=== PATIENT | male | born 1980 | race Caucasian/White ===

== ENCOUNTER 2022-06-05 09:55 | Emergency (ER) | payer SELFPAY ==
[2022-06-05 10:00] VITALS: BP 167/109; PULSE 90; RESP 14; TEMP 36.4; O2SAT 100; BMI 22.0
--- NOTE | 2022-06-05 10:16 | ECG_ITS ---
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 Measurements Intervals [place] Rate: 90 P: 69 NV: 126 QRS: 57 QRSD: 98 T: 47 QT: 348 QTc: 426 Interpretive Statements SINUS RHYTHM POSSIBLE RIGHT VENTRICULAR CONDUCTION DELAY [RSR (QR) IN V1/V2] MINIMAL VOLTAGE CRITERIA FOR LVH, CONSIDER NORMAL VARIANT [MEETS CRITERIA IN ONE OF: R(aVL), S(V1), R(V5), R(V5/V6)+S(V1)] No previous ECG available for comparison Electronically Signed On 06-08-2022 18:35:27 KINDERGARTEN TEACHER ASSISTANT by Ole Carrillo M.D. [id number]
--- NOTE | 2022-06-05 10:24 | ED_ITS ---
HPI - Chest Pain General: Chief Complaint: Chest Pain Stated Complaint: Dizzy, chest pain Time Seen by Provider: 06/05/22 10:24 History of Present Illness: Mr. Bruce is a 41-year-old gentleman with history of hypertension presenting to the emergency department due to chest discomfort and presyncopal feeling. He reports first noticing symptoms yesterday while at work where he became very lightheaded and had associated chest pressure. This improved with sitting and drinking some water though has subsequently recurred especially with exertion. He endorses seeing spots with the presyncopal feeling. Intensity symptoms at worst is moderate to severe though currently mild to moderate. Denies frequent similar episodes in the past. No other specific changes in health, exacerbating, or alleviating factors identified. Former smoker, does endorse positive family history for premature coronary artery disease. Onset (ago): day(s) Prior episodes: No Onset: during exertion Pain location: substernal Pain radiation: none Severity: moderate Quality: heaviness Relieving factors: rest Exacerbating factors: exertion Associated symptoms: Reports other Review of Systems General: Reports: 10 or more systems reviewed and unremarkable except in HPI and below PFSH ED PFSH: Medical History (Updated 06/13/22 @ 00:00 by ) Hypertension Family History (Updated 06/05/22 @ 10:32 by Hudson Kamara MD) Other Family history of premature coronary artery disease Social History (Updated 06/05/22 @ 10:32 by Hudson Kamara MD) Smoking and tobacco status: former smoker Physical Exam Const: COMMON NORMALS: alert GENERAL APPEARANCE: cooperative and well developed HENMT: COMMON NORMALS: normocephalic and atraumatic HEAD & SCALP: normocephalic and atraumatic Eye: COMMON NORMALS: conjunctivae normal CONJUNCTIVA: Yes conjunctivae normal SCLERA: sclerae normal Neck/C-Spine: COMMON NORMALS: supple GENERAL: Yes trachea midline Resp: COMMON NORMALS: clear to auscultation bilaterally EFFORT & INSPECTION: Yes able to speak in complete sentences AUSCULTATION: clear to auscultation bilaterally Cardio: COMMON NORMALS: regular rate and regular rhythm RATE: regular rate RHYTHM: regular rhythm GI: COMMON NORMALS: Soft to palpation PALPATION: Yes Soft to palpation and No Tenderness to palpation present (GI) Extremity: GENERAL: Yes normal exam except as noted and No edema Neuro: COMMON NORMALS: moves all extremities SENSORIUM/ORIENTATION: Yes alert and No Orientation impaired Psych: COMMON NORMALS: mental status grossly normal and Normal thought process present THOUGHT PROCESS: Normal thought process present Course Vital Signs: Vital signs: Vital Signs Temperature 97.6 F 06/05/22 10:00 Pulse Rate 68 06/05/22 12:30 Respiratory Rate 23 H 06/05/22 12:30 Blood Pressure 155/103 06/05/22 12:30 Pulse Oximetry 100 06/05/22 12:30 Oxygen Delivery Me thod 06/05/22 10:00 MDM - Chest Pain Medical Decision Making 41-year-old gentleman sent chest pain and presyncopal type feeling. Exam as above. No focal deficits. EKG with sinus rhythm, no STEMI. Unremarkable hematologic and metabolic panel. D-dimer negative. Viral studies negative. Chest x-ray with no lobar consolidation or pneumothorax. CT head negative. Treated with aspirin and fluids during ED course. Etiology of patient symptoms is unspecified chest pain presyncope. Patient is low risk by heart score however given family history does likely need further outpatient work-up. The results of ED evaluation were discussed with the patient including prescriptions and/or symptomatic cares (if applicable) including appropriate and responsible use, followup plan, and return precautions. The patient verbalized understanding and felt safe for discharge. Medical Records I reviewed the patient's medical records. Lab Data I reviewed the patient's lab results. 06/05/22 10:40 06/05/22 10:40 Radiology Impressions Chest X-Ray 06/05/22 10:28 IMPRESSION: Unremarkable chest radiograph. Head CT 06/05/22 11:29 IMPRESSION: No acute intracranial abnormality identified. Laboratory Results WBC 5.8 10^3/uL (4.0-10.0) 06/05/22 10:40 RBC 5.36 10^6/uL (4.1-5.3) H 06/05/22 10:40 Hgb 16.2 g/dL (11.7-16.6) 06/05/22 10:40 Hct 47.8 % (42.0-52.0) 06/05/22 10:40 MCV 89.2 fl (80-94) 06/05/22 10:40 MCH 30.2 pg (28.0-34.0) 06/05/22 10:40 MCHC 33.9 g/dL (30.0-36.0) 06/05/22 10:40 RDW 12.6 % (12.1-15.1) 06/05/22 10:40 Plt Count 256 10^3/cmm (130-400) 06/05/22 10:40 MPV 10.2 fL (7.4-10.4) 06/05/22 10:40 Neut % (Auto) 69.0 % 06/05/22 10:40 Lymph % (Auto) 17.2 % 06/05/22 10:40 [place] % (Auto) 8.8 % 06/05/22 10:40 Eos % (Auto) 4.5 % 06/05/22 10:40 Baso % (Auto) 0.3 % 06/05/22 10:40 Neut # (Auto) 4.00 10^3/uL (1.8-7.7) 06/05/22 10:40 Lymph # (Auto) 1.0 10^3/uL (0.8-4.8) 06/05/22 10:40 Aiken # (Auto) 0.5 10^3/uL (0.2-0.9) 06/05/22 10:40 Eos # (Auto) 0.3 10^3/uL (0.0-0.8) 06/05/22 10:40 Baso # (Auto) 0.0 10^3/uL (0.0-0.1) 06/05/22 10:40 Nucleated RBC % (auto) 0 % 06/05/22 10:40 Nucleated RBCs # 0.0 /100WBC 06/05/22 10:40 D-Dimer <= 0.27 ug/mIFEU (0-0.59) 06/05/22 10:40 Sodium 139 mmol/L (136-145) 06/05/22 10:40 Potassium 4.3 mmol/L (3.5-5.1) 06/05/22 10:40 Chloride 104 mmol/L (98-107) 06/05/22 10:40 Carbon Dioxide 24 mmol/L (22-29) 06/05/22 10:40 Anion Gap 15.3 (5-19) 06/05/22 10:40 BUN 13 mg/dL (6-20) 06/05/22 10:40 Creatinine 0.7 mg/dL (0.7-1.2) 06/05/22 10:40 GFR Calculation 124.3 mL/min (90-130) 06/05/22 10:40 Glucose 73 mg/dL (65-115) 06/05/22 10:40 Calculated Osmolality 287 mOsm/kg (285-295) 06/05/22 10:40 Calcium 9.6 mg/dL (8.5-10.5) 06/05/22 10:40 Total Bilirubin 0.4 mg/dL (0.15-1.2) 06/05/22 10:40 AST 15 U/L (0-40) 06/05/22 10:40 ALT 14 U/L (0-41) 06/05/22 10:40 Alkaline Phosphatase 88 U/L (40-130) 06/05/22 10:40 Troponin T Baseline 6 ng/L (0-15) 06/05/22 10:40 NT-Pro-B Natriuret Pep 101 pg/mL (0-125) 06/05/22 10:40 Total Protein 7.0 g/dL (6.6-8.7) 06/05/22 10:40 Albumin 4.6 g/dL (3.5-5.2) 06/05/22 10:40 Globulin 2.4 g/dL (1.3-4.6) 06/05/22 10:40 Lipase 28 U/L (13-60) 06/05/22 10:40 Influenza Type A Ag negative (Negative) 06/05/22 10:45 Influenza Type B Ag negative (Negative) 06/05/22 10:45 SARS-CoV-2 Ag (Rapid) negative (Negative) 06/05/22 10:45 Discharge Plan Discharge Patient Disposition: Home Clinical Impression: Chest pain, Pre-syncope Condition: Stable Prescriptions: New losartan 50 mg tablet 50 mg PO DAILY Qty: 30 0RF hydrochlorothiazide 25 mg tablet 25 mg PO DAILY Qty: 30 0RF No Action Tylenol Ex Str Rapid Release 500 mg Tablet 1,500 mg PO Q6H PRN (Reason: Pain) Discharge Orders: Discharge ED (Routine); Ordered 06/05/22 Ordered By: Hudson Kamara Other Ambulatory Orders: ECG holter monitor 3 Days (Routine) Timeframe: 3 Days Facility: [facility] - Location: Radiology Ordered By: Hudson Kamara Discharge Diet: Usual diet Discharge Activity: Increase activity as tolerated Patient Instructions: Chest Pain (ED), Near Syncope (ED) Activity Restrictions/Additional Instructions: Thank you for visiting the emergency department. You were seen and evaluated for chest pain and lightheadedness. The exact cause of your symptoms is unclear though as discussed does not appear to need inpatient management at this time. I do believe that he requires further outpatient evaluation. I will message case management for further testing. I will also message case management for a primary care provider. Please follow- up with a primary care provider. Return to the emergency department for worsening symptoms or anything else that you are concerned about a feel needs emergency department evaluation. 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
--- NOTE | 2022-06-05 10:28 | XR_ITS ---
WS: [id number] Exam: XR chest 1V portable [id number] Date/Time of Exam: 06/05/2022 10:28 AM Reason For Exam: cp Findings: The lungs are clear and fully expanded. Costophrenic angles are sharp. No infiltrates. Bronchovascula r relief appears normal. Cardiac silhouette is unremarkable. Bony elements are intact. XR/XR chest 1V portable [id number] IMPRESSION: Unremarkable chest radiograph.
[2022-06-05 10:30] VITALS: BP 163/115; PULSE 93; RESP 18; O2SAT 99
[2022-06-05] MEDS: aspirin 81 mg Chew Tablet 324 MG PO (10:31)
--- NOTE | 2022-06-05 10:36 | PC.PHAR ---
pt states takes no rx medications
--- NOTE | 2022-06-05 10:40 | PC.NURSE ---
pt placed on continuos spo2, nibp, and cm.
[2022-06-05 10:41] VITALS: BP 163/115; BP 168/130; BP 169/111; PULSE 109; PULSE 91; PULSE 94
[2022-06-05 10:55] LABS: Basophils % 0.3 %; Eosinophils # 0.3 10^3/uL (0.0-0.8); Eosinophils % 4.5 %; Hematocrit 47.8 % (42.0-52.0); Hemoglobin 16.2 g/dL (11.7-16.6); Lymphocytes % 17.2 %; Mean Corpuscular HGB Conc 33.9 g/dL (30.0-36.0); Mean Corpuscular Hemoglobin 30.2 pg (28.0-34.0); Mean Corpuscular Volume 89.2 fl (80-94); Mean Platelet Volume 10.2 fL (7.4-10.4); Monocytes # 0.5 10^3/uL (0.2-0.9); Monocytes % 8.8 %; Nucleated Red Blood Cells % 0 %; Platelet Count 256 10^3/cmm (130-400); Red Blood Count 5.36 10^6/uL (4.1-5.3); Red Cell Distribution Width 12.6 % (12.1-15.1); White Blood Count 5.8 10^3/uL (4.0-10.0)
[2022-06-05 11:12] LABS: D Dimer <= 0.27 ug/mIFEU (0-0.59)
[2022-06-05 11:13] LABS: Influenza A by IFA negative (Negative); Influenza B by IFA negative (Negative); SARS Covid-2 Antigen negative (Negative)
[2022-06-05 11:21] LABS: Troponin(5th) Baseline 6 ng/L (0-15)
[2022-06-05] MEDS: sodium chloride 0.9% 1,000 ML 999 ML IV (11:22)
[2022-06-05 11:28] LABS: Alanine Aminotransferase 14 U/L (0-41); Albumin Level 4.6 g/dL (3.5-5.2); Alkaline Phosphatase 88 U/L (40-130); Anion Gap 15.3 (5-19); Aspartate Amino Transferase 15 U/L (0-40); Blood Urea Nitrogen 13 mg/dL (6-20); Calcium 9.6 mg/dL (8.5-10.5); Carbon Dioxide 24 mmol/L (22-29); Chloride 104 mmol/L (98-107); Globulin 2.4 g/dL (1.3-4.6); Glomerular Filtration Rate 124.3 mL/min (90-130); Glucose 73 mg/dL (65-115); Lipase 28 U/L (13-60); NT Pro B Type Natriuretic Pept 101 pg/mL (0-125); Osmolality Calculated 287 mOsm/kg (285-295); Potassium 4.3 mmol/L (3.5-5.1); Sodium 139 mmol/L (136-145); Total Bilirubin 0.4 mg/dL (0.15-1.2)
--- NOTE | 2022-06-05 11:29 | CTR_ITS ---
PROCEDURE INFORMATION: Exam: CT Head Without Contrast Exam date and time: 06/05/2022 11:33 AM Age: 41 years old Clinical indication: Dizziness; Patient HX: Hbp, chest pain x2 days; Additional info: Near syncope TECHNIQUE: Imaging protocol: Computed tomography of the head without contrast. Radiation optimization: All CT scans at this facility use at least one of these dose optimization techniques: automated exposure control; mA and/or kV adjustment per patient size (includes targeted exams where dose is matched to clinical indication); or iterative reconstruction. COMPARISON: No relevant prior studies available. RADIATION DOSE METRICS: Total DLP (mGy-cm): 968.28 FINDINGS: Brain: Normal. No hemorrhage. Unremarkable white matter. No mass effect. Ventricles: No hydrocephalus or evidence of increased intracranial pressure. Paranasal sinuses: Visualized sinuses are unremarkable. No fluid levels. Mastoid air cells: Visualized mastoid air cells are well aerated. Bones/joints: No acute abnormality. No acute fracture. Soft tissues: Unremarkable. CT/CT head wo con* [id number] IMPRESSION: No acute intracranial abnormality identified.
[2022-06-05 11:30] VITALS: BP 153/101; PULSE 68; RESP 15; O2SAT 99
--- NOTE | 2022-06-05 11:56 | ECG_ITS ---
[facility] Test Date: 2022-06-05 Pat Name: Brandon Bruce Department: Room: Gender: Male Poly Operator: : 1980 Requested By: Hudson Kamara Order Number: [id number] Tamica MD: Ole Carrillo M.D. Measurements Intervals [place] Rate: 75 P: 58 NJ: 145 QRS: 35 QRSD: 82 T: 50 QT: 373 QTc: 417 Interpretive Statements SINUS RHYTHM MINIMAL VOLTAGE CRITERIA FOR LVH, CONSIDER NORMAL VARIANT [MEETS CRITERIA IN ONE OF: R(aVL), S(V1), R(V5), R(V5/V6)+S(V1)] SEPTAL MYOCARDIAL INFARCTION , OF INDETERMINATE AGE [40+ ms Q WAVE IN V1/V2] Compared to ECG 06/05/2022 10:15:56 Myocardial infarct finding now present Electronically Signed On 06-08-2022 18:35:03 GENERAL PRODUCTION WORKER by Ole Carrillo M.D. [id number]
[2022-06-05 12:30] VITALS: BP 155/103; PULSE 68; RESP 23; O2SAT 100
--- NOTE | 2022-06-08 11:03 | DCPLANNER ---
Addendum entered by Yris Kamara 06/08/22 11:04: field reimbursement manager also had an order to schedule an outpatient stress test for patient. Patient does not have a primary care physician listed in his chart, ed case manager attempted to call patient to speak with him about getting a primary care physician. field reimbursement manager unable to speak with patient about established with a provider. field reimbursement manager unable to order the stress test, due to no primary care physician. field reimbursement manager mailed patient a letter to contact ed case manager about getting established with a primary care. Original Note: field reimbursement manager had message to speak with patient about getting established with a primary care physician. field reimbursement manager called phone number [phone], was just a busy signal. field reimbursement manager unable to speak with patient or leave a voicemail for patient at this time.
== END 2022-06-05 13:55 | disposition home or self-care (01) ==
PROVIDERS: Emergency Provider Emergency Medicine
DX: R07.9 Chest pain, unspecified (principal); R55 Syncope and collapse; I10 Essential (primary) hypertension
CPT/HCPCS: 70450; 71045; 80053; 83690; 83880; 84484; 85025; 85378; 87426; 87804; 93005; 96360; 99285; J7030

== ENCOUNTER 2022-06-19 06:17 | Emergency (ER) | payer SELFPAY ==
[2022-06-19 06:23] VITALS: BP 153/104; PULSE 81; RESP 16; TEMP 36.3; O2SAT 99; BMI 20.9
--- NOTE | 2022-06-19 06:38 | ED_ITS ---
HPI - Dental/Oral General: Chief complaint: Dental/Oral Stated complaint: tooth pain Time Seen by Provider: 06/19/22 06:18 Source: patient Mode of arrival: ambulatory History of Present Illness: 42-year-old male presents emergency room with complaint of right molar mandibular pain. He has 2 teeth that are causing significant discomfort he was seen at dentist earlier this week and prescribed antibiotics which she has not started he been taking ibuprofen states is not controlled pain. No difficulty swallowing or breathing. MD Complaint: tooth pain Teeth map: 1. Onset (ago): day(s) Duration: constant Severity: moderate Relieving factors: nothing Exacerbating factors: nothing Context: history of dental caries Associated symptoms: Reports ear or mastoid pain; Denies fever(s), gum swelling, odynophagia, sore throat or tongue swelling Treatment prior to arrival: oral analgesic (Ibuprofen) Review of Systems Const: Denies: fever(s), chills, fatigue or malaise ENMT: Reports: ear or mastoid pain; Denies: throat pain or odynophagia Card: Denies: chest pain, edema, dyspnea on exertion or orthopnea Resp: Denies: dyspnea, productive cough or non-productive cough GI: Denies: abdominal pain, nausea, vomiting, hematemesis, coffee ground emesis, diarrhea, constipation, bloating, hematochezia or melena : Denies: flank pain, difficulty urinating, dysuria, urinary frequency or urinary urgency Skin/Breast: Denies: rash or pruritus All/Imm: Denies: tongue swelling PFSH ED PFSH: Medical History Hypertension Family History Other Family history of premature coronary artery disease Social History Smoking and tobacco status: former smoker Physical Exam Const: GENERAL APPEARANCE: cooperative ORIENTATION/CONSCIOUSNESS: Yes doris ke, Yes oriented to person, Yes oriented to place and Yes oriented to time HENMT: COMMON NORMALS: normocephalic, atraumatic and hearing grossly normal bilaterally HEAD & SCALP: normocephalic and atraumatic TEETH & GINGIVA: Yes poor dentition and Yes teeth discoloration TEETH & GINGIVA IMAGES: 1. OTHER: Erosion of tooth at the gumline with some discoloration no significant swelling or presence of abscess at the gumline is noted. Lymph: LYMPHATIC: no lymphadenopathy noted OTHER: Tender with palpation along anterior cervical chain but there is no palpable lymph nodes or swelling no fullness in the submandibular space. Resp: COMMON NORMALS: normal respiratory effort, No retractions, No use of accessory muscles and clear to auscultation bilaterally AUSCULTATION: clear to auscultation bilaterally Cardio: COMMON NORMALS: regular rate, regular rhythm and No murmurs present (Cardio) RATE: regular rate RHYTHM: regular rhythm GI: COMMON NORMALS: Soft to palpation and No hepatosplenomegaly present AUSCULTATION: Yes normoactive bowel sounds PALPATION: Yes Soft to palpation, No Tenderness to palpation present (GI), No Guarding due to palpation present (GI) and Yes No hepatosplenomegaly present Extremity: COMMON NORMALS: normal to inspection, capillary refill normal, no clubbing, cyanosis or edema, no calf tenderness and no pedal edema Neuro: SENSORIUM/ORIENTATION: Yes oriented to person, Yes oriented to place and Yes oriented to time Skin: COMMON NORMALS: no rashes or lesions noted GENERAL SKIN EXAM: no rashes or lesions noted Course Vital Signs: Vital signs: Vital Signs Temperature 97.4 F L 06/19/22 06:23 Pulse Rate 81 06/19/22 06:23 Respiratory Rate 16 06/19/22 06:23 Blood Pressure 153/104 06/19/22 06:23 Pulse Oximetry 99 06/19/22 06:23 Oxygen Delivery Me thod 06/19/22 06:23 MDM - Dental/Oral Medical Decision Making Given Toradol in the single p.o. dose of hydrocodone in the ER. Discharged home with diclofenac and tramadol. Encourage start antibiotics as soon as he is able. Medical Records I reviewed the patient's medical records. Discharge Plan Discharge Patient Disposition: Home Clinical Impression: Dental caries Condition: Stable Prescriptions: New tramadol 50 mg tablet 50 mg PO Q8H PRN (Reason: pain) Qty: 10 0RF diclofenac sodium 75 mg tablet,delayed release (DR/EC) 75 mg PO Q12H PRN (Reason: pain) Qty: 20 0RF No Action Tylenol Ex Str Rapid Release 500 mg Tablet 1,500 mg PO Q6H PRN (Reason: Pain) losartan 50 mg tablet 50 mg PO DAILY Qty: 30 0RF hydrochlorothiazide 25 mg tablet 25 mg PO DAILY Qty: 30 0RF Discharge Orders: Discharge ED (Routine); Ordered 06/19/22 Ordered By: Waldo Camara Discharge Diet: Soft Mechanical Discharge Activity: Resume usual activity Patient Instructions: Opioid Safety, Pain Management Activity Restrictions/Additional Instructions: You were seen today for your dental caries. Recommend that you start the oral antibiotic previously prescribed by the dentist. You were given tramadol and ibuprofen to use for pain control. Follow-up with a dentist as soon as you are able. Coding Level of Care Code ED Carpet Finishing Supervisor for Diandra Caputo
[2022-06-19] MEDS: ketorolac 30 mg/mL INJ IVP (06:45)
[2022-06-19] MEDS: HYDROcodone-acetaminophen 5-325 mg Tablet 1 TAB PO (06:45)
== END 2022-06-19 06:48 | disposition home or self-care (01) ==
PROVIDERS: Emergency Provider Family Medicine
DX: K02.9 Dental caries, unspecified (principal); I10 Essential (primary) hypertension; Z87.891 Personal history of nicotine dependence
CPT/HCPCS: 96374; 99284; J1885

== ENCOUNTER → 2022-08-27 11:40 | Outpatient (BNVA) | payer BC, SELFPAY | PROVIDERS: PCP Family Medicine; Visit Provider Family Medicine | DX: M25.561 Pain in right knee (principal); M25.562 Pain in left knee | CPT/HCPCS: 73562 ==

== ENCOUNTER 2023-02-03 10:41 | Emergency (ER) | payer OTHER, SELFPAY ==
[2023-02-03 10:43] VITALS: BP 145/107; PULSE 82; TEMP 36.9; O2SAT 99; BMI 23.4
[2023-02-03 11:08] LABS: Glucose Point of Care 90 mg/dL (70-110)
--- NOTE | 2023-02-03 11:25 | CTR_ITS ---
PROCEDURE INFORMATION: Exam: CT Head Without Contrast Exam date and time: 02/03/2023 11:57 AM Age: 42 years old Clinical indication: Other: Seizure; Additional info: New onset seizure TECHNIQUE: Imaging protocol: Computed tomography of the head without contrast. Axial, coronal and sagittal reformatted images were created and reviewed. Radiation optimization: All CT scans at this facility use at least one of these dose optimization techniques: automated exposure control; mA and/or kV adjustment per patient size (includes targeted exams where dose is matched to clinical indication); or iterative reconstruction. REPORTING DATA: Count of CT and Cardiac NM exams in prior 12 months: This patient has received [address] and 0 known cardiac nuclear medicine studies in the 12 months prior to the current study. COMPARISON: CT head wo con* [id number] 06/05/2022 11:33 AM RADIATION DOSE METRICS: Total DLP (mGy-cm): 1032.36 FINDINGS: Brain: No CT evidence of acute intracranial hemorrhage or acute territorial infarction. No significant mass effect or midline shift. Basal cisterns patent. Cerebral ventricles: Normal in size and configuration. Paranasal sinuses: Unremarkable. No fluid levels. Mastoid air cells: Grossly unremarkable. Bones/joints: No acute osseous abnormality. Soft tissues: Grossly unremarkable. CT/CT head wo con* [id number] IMPRESSION: No CT evidence of acute intracranial pathology.
[2023-02-03 11:32] LABS: Basophils # 0.1 10^3/uL (0.0-0.1); Basophils % 0.7 %; Eosinophils # 0.2 10^3/uL (0.0-0.8); Eosinophils % 3.2 %; Hematocrit 49.3 % (42.0-52.0); Lymphocytes % 27.5 %; Mean Corpuscular HGB Conc 34.5 g/dL (30.0-36.0); Mean Corpuscular Hemoglobin 30.4 pg (28.0-34.0); Mean Platelet Volume 10.4 fL (7.4-10.4); Monocytes # 0.7 10^3/uL (0.2-0.9); Monocytes % 9.4 %; Neutrophils # 4.25 10^3/uL (1.8-7.7); Neutrophils % 58.9 %; Nucleated Red Blood Cells % 0 %; Platelet Count 297 10^3/cmm (130-400); Red Cell Distribution Width 12.3 % (12.1-15.1); White Blood Count 7.2 10^3/uL (4.0-10.0)
[2023-02-03 11:55] LABS: Add Urine Microscopic? NO; Charge for UA Resulting for Rev
[2023-02-03 11:57] LABS: Alanine Aminotransferase 25 U/L (0-41); Albumin Level 5.1 g/dL (3.5-5.2); Alkaline Phosphatase 90 U/L (40-130); Anion Gap 15.5 (5-19); Aspartate Amino Transferase 20 U/L (0-40); Blood Urea Nitrogen 12 mg/dL (6-20); Calcium 9.6 mg/dL (8.5-10.5); Carbon Dioxide 23 mmol/L (22-29); Chloride 104 mmol/L (98-107); Globulin 2.8 g/dL (1.3-4.6); Glomerular Filtration Rate 92.5 mL/min (90-130); Glucose 63 mg/dL (65-115); Osmolality Calculated 286 mOsm/kg (285-295); Potassium 3.5 mmol/L (3.5-5.1); Sodium 139 mmol/L (136-145); Total Bilirubin 0.5 mg/dL (0.15-1.2); Total Protein 7.9 g/dL (6.6-8.7)
[2023-02-03 12:01] LABS: Bilirubin Urine Neg (Negative); Blood Urine Neg (Negative); Glucose Urine UA Norm (Normal); Ketones Urine Negative (Negative); Leukocyte Esterase Urine Negative (Negative); Nitrate Urine Negative (Negative); Protein Urine Neg (Negative); Urine Appearance Clear (CLEAR); Urine Color Yellow (Yellow); Urobilinogen Urine Norm (Negative); pH Urine 5 (5-7)
[2023-02-03 12:07] LABS: Amphetamines Screen Urine Negative (Negative); Barbiturates Screen Urine Negative (Negative); Benzodiazepines Screen Urine Negative (Negative); Cocaine Screen Urine Negative (Negative); Opiate Screen Urine Negative (Negative); PCP Screen Urine Negative (Negative); THC Screen Urine Negative (Negative)
[2023-02-03] MEDS: acetaminophen 325 mg Tablet 650 MG PO (12:08)
--- NOTE | 2023-02-03 12:37 | W.ED.SEIZURE ---
HPI - Seizure General: Chief Complaint: Seizure Stated Complaint: Seizure Time Seen by Provider: 02/03/23 10:47 Source: patient Mode of arrival: EMS History of Present Illness: HPI Narrative: 42-year-old male presents to the emergency room via EMS with complaint of new onset seizures. He was working outside and told his coworker he was not feeling well began to get lightheaded dizzy and then he had seizure-like activity that was witnessed for an unknown length of time EMS was called on arrival they found him to be postictal he is still remaining postictal now he is complaining of a bit of a headache. He has no history of seizures does have a history of hypertension he has not been taking his any his medications due to cost. He denies any use of drugs or alcohol recently. No recent head trauma or injury. MD complaint: seizure Onset (ago): minute(s) Description of Episode: tonic-clonic movement Witnessed: Yes - by Bystander Trauma: No Seizure History: No Place: Work Possible Precipitating Event: other (Heat exposure) Associated symptoms: Deny chest pain, chills, confusion, cough, diaphoresis, fever(s), anorexia, malaise, rash, short of breath, syncope or weakness Treatments prior to arrival: none Review of Systems Const: Denies: fever(s), chills, malaise or diaphoresis ENMT: Denies: throat pain, ear or mastoid pain, nasal discharge or nasal congestion Card: Denies: chest pain or syncope Resp: Denies: dyspnea, productive cough or non-productive cough GI: Denies: abdominal pain, nausea, vomiting, hematemesis, coffee ground emesis, diarrhea, constipation, bloating, hematochezia or melena : Denies: flank pain, dysuria, urinary frequency or urinary urgency Skin/Breast: Denies: rash or pruritus Neuro: Denies: confusion PFSH ED PFSH: Medical History Hypertension Surgical History History of facial surgery Family History Mother Cancer breast CA Other Family history of premature coronary artery disease Hyperlipidemia Hypertension Denies family history of Diabetes CAD (coronary artery disease) Clotting disorder Dementia Psychiatric illness Chronic kidney disease (CKD) Anesthesia complication Bleeding disorder Lung disease Stroke Social History Smoking and tobacco status: never smoked Quit status (tobacco): has quit using tobacco Year quit tobacco: 3yrs Former quit date comment: 3PPD x 25 Alcohol intake: never Substance/Drug Use: never Lives independently: Yes Marital status: Single Number of children: 3 service: No Current occupational status: employed Current occupation: [employer] Current gender identity: Male Special aiden needs: No Agree to transfusion: Yes Physical Exam Const: GENERAL APPEARANCE: cooperative and comfortable ORIENTATION/CONSCIOUSNESS: Yes awake, Yes oriented to person, Yes oriented to place and Yes oriented to time HENMT: COMMON NORMALS: normocephalic, atraumatic and hearing grossly normal bilaterally HEAD & SCALP: normocephalic and atraumatic Resp: COMMON NORMALS: normal respiratory effort, No retractions, No use of accessory muscles and clear to auscultation bilaterally AUSCULTATION: clear to auscultation bilaterally Cardio: COMMON NORMALS: regular rate, regular rhythm and No murmurs present (Cardio) RATE: regular rate RHYTHM: regular rhythm GI: COMMON NORMALS: Soft to palpation and No hepatosplenomegaly present AUSCULTATION: Yes normoactive bowel sounds PALPATION: Yes Soft to palpation, No Tenderness to palpation present (GI), No Guarding due to palpation present (GI) and Yes No hepatosplenomegaly present : COMMON NORMALS: Yes no CVA tenderness BLADDER/KIDNEY EXAM: Yes no CVA tenderness Back/Pelvis: COMMON NORMALS: no CVA tenderness Extremity: COMMON NORMALS: normal to inspection, capillary refill normal, no clubbing, cyanosis or edema, no calf tenderness and no pedal edema Neuro: SENSORIUM/ORIENTATION: Yes oriented to person, Yes oriented to place and Yes oriented to time OTHER: Patient is alert and oriented to time place and person he does not recall what happened prior to getting here he still somewhat drowsy but interacts easily. Skin: COMMON NORMALS: no rashes or lesions noted GENERAL SKIN EXAM: no rashes or lesions noted Course Vital Signs: Vital signs: Vital Signs Temperature 98.4 F 02/03/23 10:43 Pulse Rate 85 02/03/23 13:13 Respiratory Rate 16 02/03/23 12:40 Blood Pressure 149/97 02/03/23 13:13 Pulse Oximetry 100 02/03/23 13:13 Oxygen Delivery Me thod Room Air 02/03/23 12:40 MDM - Seizure MDM Narrative Medical decision making narrative: Patient's improved his postictal phase is progressively resolving. He can remember what happened prior to coming to the hospital he is awake and alert he is oriented to time place and person at this time. We will discharge patient home his blood pressure is significantly high he has no focal neurologic deficits at this time. CT of the head was negative we will start him on amlodipine 5 mg daily for blood pressure set him up for outpatient EEG and referral to neurology. Lab Data 02/03/23 11:26 02/03/23 11:26 Labs: Radiology Impressions Head CT 02/03/23 11:25 IMPRESSION: No CT evidence of acute intracranial pathology. Laboratory Results WBC 7.2 10^3/uL (4.0-10.0) 02/03/23 11:26 RBC 5.60 10^6/uL (4.1-5.3) H 02/03/23 11:26 Hgb 17.0 g/dL (11.7-16.6) H 02/03/23 11:26 Hct 49.3 % (42.0-52.0) 02/03/23 11:26 MCV 88.0 fl (80-94) 02/03/23 11:26 MCH 30.4 pg (28.0-34.0) 02/03/23 11:26 MCHC 34.5 g/dL (30.0-36.0) 02/03/23 11:26 RDW 12.3 % (12.1-15.1) 02/03/23 11:26 Plt Count 297 10^3/cmm (130-400) 02/03/23 11:26 MPV 10.4 fL (7.4-10.4) 02/03/23 11:26 Neut % (Auto) 58.9 % 02/03/23 11:26 Lymph % (Auto) 27.5 % 02/03/23 11:26 [place] % (Auto) 9.4 % 02/03/23 11:26 Eos % (Auto) 3.2 % 02/03/23 11:26 Baso % (Auto) 0.7 % 02/03/23 11:26 Neut # (Auto) 4.25 10^3/uL (1.8-7.7) 02/03/23 11:26 Lymph # (Auto) 2.0 10^3/uL (0.8-4.8) 02/03/23 11:26 [place] # (Auto) 0.7 10^3/uL (0.2-0.9) 02/03/23 11:26 Eos # (Auto) 0.2 10^3/uL (0.0-0.8) 02/03/23 11:26 Baso # (Auto) 0.1 10^3/uL (0.0-0.1) 02/03/23 11:26 Nucleated RBC % (auto) 0 % 02/03/23 11:26 Nucleated RBCs # 0.0 /100WBC 02/03/23 11:26 Sodium 139 mmol/L (136-145) 02/03/23 11:26 Potassium 3.5 mmol/L (3.5-5.1) 02/03/23 11:26 Chloride 104 mmol/L (98-107) 02/03/23 11:26 Carbon Dioxide 23 mmol/L (22-29) 02/03/23 11:26 Anion Gap 15.5 (5-19) 02/03/23 11:26 BUN 12 mg/dL (6-20) 02/03/23 11:26 Creatinine 0.9 mg/dL (0.7-1.2) 02/03/23 11:26 GFR Calculation 92.5 mL/min (90-130) 02/03/23 11:26 Glucose 63 mg/dL (65-115) L 02/03/23 11:26 POC Glucose 90 mg/dL (70-110) 02/03/23 11:04 Calculated Osmolality 286 mOsm/kg (285-295) 02/03/23 11:26 Calcium 9.6 mg/dL (8.5-10.5) 02/03/23 11:26 Total Bilirubin 0.5 mg/dL (0.15-1.2) 02/03/23 11:26 AST 20 U/L (0-40) 02/03/23 11:26 ALT 25 U/L (0-41) 02/03/23 11:26 Alkaline Phosphatase 90 U/L (40-130) 02/03/23 11:26 Total Protein 7.9 g/dL (6.6-8.7) 02/03/23 11:26 Albumin 5.1 g/dL (3.5-5.2) 02/03/23 11:26 Globulin 2.8 g/dL (1.3-4.6) 02/03/23 11:26 Urine Color Yellow (Yellow) 02/03/23 11:27 Urine Appearance Clear (CLEAR) 02/03/23 11:27 Urine pH 5 (5-7) 02/03/23 11:27 Ur Specific [place] 1.010 (1.005-1.030) 02/03/23 11:27 Urine Protein Neg (Negative) 02/03/23 11:27 Urine Glucose (UA) Norm (Normal) 02/03/23 11:27 Urine Ketones Negative (Negative) 02/03/23 11:27 Urine Blood Neg (Negative) 02/03/23 11:27 Urine Nitrate Negative (Negative) 02/03/23 11:27 Urine Bilirubin Neg (Negative) 02/03/23 11:27 Urine Urobilinogen Norm mg/dL (Negative) 02/03/23 11:27 Ur Leukocyte Esterase Negative (Negative) 02/03/23 11:27 Urine Opiates Screen Negative ng/mL (Negative) 02/03/23 11:27 Ur Barbiturates Screen Negative ng/mL (Negative) 02/03/23 11:27 Ur Phencyclidine Scrn Negative ng/mL (Negative) 02/03/23 11:27 Ur Amphetamines Screen Negative ng/mL (Negative) 02/03/23 11:27 U Benzodiazepines Scrn Negative ng/mL (Negative) 02/03/23 11:27 Urine Cocaine Screen Negative ng/mL (Negative) 02/03/23 11:27 U Marijuana (THC) Screen Negative ng/mL (Negative) 02/03/23 11:27 Discharge Plan Discharge Patient Disposition: Home Clinical Impression: New onset seizure, Hypertension Condition: Stable Prescriptions: New amlodipine 5 mg tablet 5 mg PO DAILY Qty: 30 0RF Discharge Orders: Discharge ED (Routine); Ordered 02/03/23 Ordered By: Waldo Camara Referrals: Alvino Wall MD [Primary Care Provider] - Discharge Diet: As Directed Discharge Activity: Increase activity as tolerated Patient Instructions: New-Onset Seizure in Adults (ED), Opioid Safety, Pain Management Activity Restrictions/Additional Instructions: You are seen today for new onset seizures. Your laboratory tests are unremarkable and CT of your head was negative. You also were noted to have elevated blood pressure. Recommend that you start on amlodipine 5 mg daily. We will set you up for an outpatient EEG and follow-up with neurology. At this point we do not recommend starting antiseizure medications until you have the EEG done. If you have recurrent seizures return to the emergency room. Coding Level of Care Code ED Deportation Officer for Diandra Caputo
[2023-02-03 12:40] VITALS: BP 167/105; PULSE 91; RESP 16; O2SAT 100
--- NOTE | 2023-02-03 12:41 | PC.NURSE ---
PT PLACED IN SEIZURE PRECAUTIONS. PT LIFE PARTNER STATES PT HAD A HEAT STROKE ABOUT 7 YEARS AGO AND HAS HIGH BP AND QUIT TAKING BP MEDICATIONS. STATES PT ALSO HAS HX OF DRUG AND ALCOHOL ABUSE.
[2023-02-03 12:52] VITALS: BP 165/104
[2023-02-03] MEDS: hyDRALAzine 20 mg/mL INJ 1 mL 10 MG IVP (12:53)
[2023-02-03] MEDS: amlodipine 5 mg Tablet PO (12:53)
[2023-02-03 13:13] VITALS: BP 149/97; PULSE 85; O2SAT 100
--- NOTE | 2023-02-05 10:52 | DCPLANNER ---
Addendum entered by Yris Kamara 02/24/23 11:33: manager oracle received the following message from the neurology clinic regarding follow up appointments: We have tried to reach the patient 2 times with no voice mail set up to scheduled the EEG. We will try one more time then send a letter. The EEG needs to be done before seen by one of our physicians. Original Note: Case [place] had message to schedule a follow up appointment for patient with neurology and an outpatient EEG. manager oracle sent patients information to the front office staff at neurology. Patients information will be printed and reviewed. Clinic will call patient with appointment information. manager oracle faxed signed order for the EEG to neurology, clinic will call patient with appointment information.
== END 2023-02-03 13:14 | disposition home or self-care (01) ==
PROVIDERS: Emergency Provider Family Medicine; PCP Family Medicine
DX: G40.89 Other seizures (principal); I10 Essential (primary) hypertension; Z87.891 Personal history of nicotine dependence
CPT/HCPCS: 36416; 70450; 80053; 80306; 81003; 82962; 85025; 96374; 99284; J0360